=== PATIENT | male | born 1980 | race African-American/Black ===

== ENCOUNTER 2022-05-21 07:34 | Emergency (ER) | payer MEDICAID ==
[2022-05-21 08:45] LABS: ESTIMATED GFR 87 mL/min (>60)
== END 2022-05-21 10:40 | disposition home or self-care (01) ==
LOC: JP.ED 07:34
DX: U07.1 COVID-19 (principal); E86.0 Dehydration; Z91.018 Allergy to other foods
CPT/HCPCS: 36415; 71045; 71045-26; 80053; 81001; 82150; 83690; 85025; 86140; 99281; 99284; U0002

== ENCOUNTER 2022-11-18 08:12 | Emergency (ER) | payer OTHER, MEDICAID | END 2022-11-18 09:34 | disposition home or self-care (01) | LOC: JP.ED 08:12 | DX: M25.512 Pain in left shoulder (principal); F17.210 Nicotine dependence, cigarettes, uncomplicated; Z91.018 Allergy to other foods | CPT/HCPCS: 99283 ==

== ENCOUNTER 2024-03-21 06:01 | Day surgery (SDC) | payer OTHER ==
[2024-03-21 06:45] LABS: HEMOGLOBIN 14.9 g/dL (12.9-16.9); WHITE BLOOD CELL COUNT,WBC 6.3 K/uL (3.2-11.0)
[2024-03-21] MEDS: Lactated Ringers 1,000 ML IV SCH (06:48)
[2024-03-21] MEDS: Nozin Nasal Sanitizer NASBOTH ONE (06:50)
[2024-03-21 06:52] LABS: A/G RATIO 0.9 (1.2-2.2); ALANINE AMINOTRANSFERASE,ALT 27 U/L (12-78); ALBUMIN 3.5 g/dL (3.4-5.0); ALKALINE PHOSPHATASE 87 U/L (46-116); ASPARTATE AMNIOTRANSFERASE,AST 18 U/L (15-37); BILIRUBIN TOTAL 0.7 mg/dL (0.2-1.0); BLOOD UREA NITROGEN,BUN 19 mg/dL (7-18); CALCIUM 8.9 mg/dL (8.5-10.1); CARBON DIOXIDE,CO2 27 mmol/L (21-32); CHLORIDE,CL 101 mmol/L (100-108); CREATININE 1.1 mg/dL (0.8-1.3); EST CRCL DRUG DOSING (CG) 81.79 mL/min; ESTIMATED GFR 86 mL/min (>60); GLUCOSE RANDOM 112 mg/dL (74-106); POTASSIUM,K 3.5 mmol/L (3.6-5.2); PROTEIN TOTAL,TP 7.3 g/dL (6.4-8.2); SODIUM,NA 139 mmol/L (140-148)
[2024-03-21 06:53] LABS: ANION GAP 14.5 mmol/L (5.0-14.0)
[2024-03-21] MEDS ORDERED: Bupivacaine 0.5% 30 ML SDV ONE ×2 (06:57→07:26)
[2024-03-21] MEDS ORDERED: fentaNYL 100 MCG/2 ML SDV ONE (07:24)
[2024-03-21] MEDS ORDERED: Ondansetron 4 MG/2 ML SDV ONE (07:24)
[2024-03-21] MEDS ORDERED: Midazolam 1 MG/ML 2 ML SDV ONE (07:24)
[2024-03-21] MEDS ORDERED: Dexamethasone 4 MG/ML SDV ONE (07:24)
[2024-03-21] MEDS ORDERED: Propofol 200 MG/20 ML SDV ONE (07:24)
[2024-03-21] MEDS ORDERED: ceFAZolin 1 GM in Premix Bag 1 BAG IV SCH (07:30)
[2024-03-21] MEDS: ceFAZolin 1 GM in Premix Bag 1 BAG IV ONE (07:50)
[2024-03-21] MEDS ORDERED: Acetaminophen/HYDROcodone 325-5 MG Tab PO PRN ×3 (10:00→10:14)
== END 2024-03-21 11:25 | disposition home or self-care (01) ==
LOC: JP.SDS 06:01
PROVIDERS: ATTEND Specialist
DX: M19.012 Primary osteoarthritis, left shoulder (principal); M25.812 Other specified joint disorders, left shoulder; F17.200 Nicotine dependence, unspecified, uncomplicated
CPT/HCPCS: 29824; 29826; 36415; 80053; 85027; A9270; C1713; J0665; J0690; J1100; J2250; J2405; J2704; J3010; J7120